=== PATIENT | male | born 1960 | race Caucasian/White ===

== ENCOUNTER 2022-02-19 21:00 | Emergency (ER) | payer OTHER, SELFPAY ==
[2022-02-19 21:18] VITALS: BP 171/89; PULSE 90; RESP 18; TEMP 37; O2SAT 100; BMI 24.6
--- NOTE | 2022-02-19 21:25 | DI.RAD.S_ITS ---
PROCEDURE: XR HAND LT MIN 3V INDICATIONS: Cut-off wheel injury, concern for FB TECHNIQUE: 3 views of the hand acquired. COMPARISON: None. FINDINGS: Bones: No fractures or dislocations. Carpal bones are normally aligned. No suspicious bony lesions. Soft tissues: There are soft tissue lacerations along the radial aspect of the hand and wrist. Multiple associated clustered punctate densities are demonstrated along the course of the laceration likely representing foreign bodies. IMPRESSION: 1. No fracture or dislocation. 2. Soft tissue lacerations with associated punctate clustered densities likely representing foreign bodies within the radial sided soft tissues. Dictated by: Paxton Morris M.D. on 02/20/2022 at 0:17 Approved by: Paxton Morris M.D. on 02/20/2022 at 0:18
--- NOTE | 2022-02-19 22:04 | PC.NURSE ---
Addendum entered by Joan Hodges R.N. 02/19/22 22:19: Soaking hand in warm water betadine. Original Note: During assessment of the wound, removed foreign body that appears to be part of cutting disk patient was using.
--- NOTE | 2022-02-19 22:45 | PC.NURSE ---
at bedside to suture laceration
--- NOTE | 2022-02-19 23:07 | ED_ITS ---
HPI - Wound/Laceration General Chief Complaint: Wound/Laceration Stated Complaint: Left hand lac/inj Time Seen by Provider: 02/19/22 22:22 Source: patient Mode of arrival: Ambulatory History of Present Illness HPI narrative: Patient is a healthy 61-year-old male who presents with left hand laceration. He was working on his car when he cut his thumb with a saw. He has no decreased range of motion goes along the thenar eminence his rest. No wrist numbness or tingling. His tetanus is not up-to-date. He is not on any anticoagulation. He is right-handed Related Data Previous Rx's Medication Instructions Recorded cephalexin 500 mg capsule 500 mg PO TID #21 caps 02/19/22 hydrocodone 5 mg-acetaminophen 325 1 tab PO Q6H PRN pain #10 tabs 02/19/22 mg tablet Allergies Allergy/AdvReac Type Severity Reaction Status Date / Time No Known Drug Allergies Allergy Verified 02/19/22 21:18 Review of Systems Review of Systems Narrative: GENERAL: Denies chills,fever HEENT: Denies throat pain RESPIRATORY: Denies dyspnea, cough, wheezing CARDIOVASCULAR: Denies chest pain, palpitations GASTROINTESTINAL: Denies nausea, vomiting MUSCULOSKELETAL: Denies extremity pain, injury SKIN: See HPI NEUROLOGIC: Denies weakness, dizziness, headache, numbness 8 point review of systems is negative except for those stated above and HPI Patient History Social History Smoking Status: Never smoker Smoking Status: Never smoker Substance Use Type: does not use Exam Initial Vital Signs Initial Vital Signs: Vital Signs Temperature 98.6 F 02/19/22 21:18 Pulse Rate 90 02/19/22 21:18 Respiratory Rate 18 02/19/22 21:18 Blood Pressure 171/89 H 02/19/22 21:18 Pulse Oximetry 100 02/19/22 21:18 Oxygen Delivery Method 02/19/22 21:18 GENERAL: Well-appearing, well-nourished and in no acute distress. CARDIOVASCULAR: peripheral pulses in tact, cap refill <2 sec RESPIRATORY: No respiratory distress, speaks in full sentences without difficulty EXTREMITIES: Normal range of motion, no clubbing or edema. Neurovascularly intact Left thumb full flexion extension cap refill less than 2 seconds strong distal radial pulse. NEUROLOGICAL: Cranial nerves II through XII grossly intact. Normal gait and speech. SKIN: Left thumb laceration 9 cm along the thenar eminence up into the wrist. Skin Hand Left Back: 1. 9 cm no tendon laceration, starting on palmar side, thenar eminence Procedures Laceration Repair Laceration 1: Site: hand (thumb) Side (If applicable): left Size (cm): 9 Description: linear Depth: simple, single layer Local Anesthetic: bupivacaine 0.5% Amount of anesthesia used (mL): 10 Pre-repair: wound explored, irrigated extensively, deep structures intact, extensive debridement and cleansed with chlorhexadine Skin layer closed with: nylon Skin layer suture size: 4-0 Number of sutures: 11 Technique: simple, interrupted Subcutaneous layer closed with: vicryl Subcutaneous layer suture size: 4-0 Number of sutures: 4 Technique: simple, interrupted Course Orders Ordered: ED Orders 02/19/22 21:25 XR hand LT min 3V Stat Discontinued Medications Hydrocodone Bitart/Acetaminophen (Hydrocodone/Acet 5/325 Prepack) [facility] Stop: 02/19/22 23:14 Last Admin: 02/19/22 23:21 Dose: 1 bottle Documented By: CHER Cefazolin Sodium (Cephalexin 250 Mg Prepack) 1 bottle [facility] Stop: 02/19/22 23:14 Last Admin: 02/19/22 23:20 Dose: 1 bottle Documented By: CHER Diphtheria/Tetanus/Acell Pertussis (Tet,Diph,Pertuss(Acell),Vac/Pf 0.5 Ml Syringe) 0.5 ml IM .ONCE ONE Stop: 02/19/22 21:26 Last Admin: 02/19/22 23:10 Dose: 0.5 ml Documented By: CHER Vital Signs Vital signs: Vital Signs - 8 hr 02/19/22 21:18 02/19/22 23:26 Temperature 98.6 F Pulse Rate 90 80 Respiratory Rate 18 18 Blood Pressure 171/89 H 164/80 H Pulse Oximetry 100 99 Oxygen Delivery Method Room Air Room Air MDM - Wound/Laceration Imaging Data Extremity x-ray #1: My Impression: Foreign body seen no fracture MDM Narrative Medical decision making narrative: Patient has significant laceration of his left hand neurovascularly he is intact. Requires 2 layer suturing he tolerated it well. X-ray does show foreign body nursing actually remove whatever foreign body was seen and was extensively is cleaned debrided. Discharge Plan Departure Patient Disposition: Home Clinical Impression: Laceration Instructions: DI for Laceration Repair Activity Restrictions/Additional Instructions: *You have been diagnosed with left hand laceration *What to do: Have sutures removed in about 7 days either by walk-in clinic PCP or return to emergency department. May keep clean and dry with soap and water. Apply antibiotic ointment 1-2 times daily. Keep bandage on well clean and active may remove bandage at night. No soaking in water. *Continue to take medications as directed Keflex 500 mg 3 times a day for 7 days Ibuprofen 600 mg every 6 hours if needed for ulih-lf-idenuoud Lyndon 1 tablet every 6 hours if needed for severe pain *Follow up with your primary care provider in 2-3 days or call [phone] *Return to ER if you should have increasing pain redness fever drain or any new, worsening or concerning symptoms CONTROLLED SUBSTANCE DISCHARGE (Narcotoic/benzodiazepine/Flexeril/Phenergan) 1. You have been prescribed narcotic medications, it does have acetaminophen/Tylenol/paracetamol in it, DO NOT TAKE MORE THAN 4,00mg in 24 hours of Tylenol. TRAMADOL DOES NOT CONTAIN TYLENOL 2. Please understand that we cannot provide further refills of narcotics, benzodiazepines or controlled substances through the ED and her pain management will need to be through your provider. 3. While on these medications you cannot drive or operate heavy machinery. 4. You cannot sign legal documents or perform any duties such as this. 5. As long as you're taking opiate pain medications he should also be taking a stool softener such as Colace, Dulcolax, MiraLAX or prune juice, to help avoid constipation. Prescriptions: New hydrocodone-acetaminophen 5-325 mg tablet 1 tab PO Q6H PRN (Reason: pain) Qty: 10 0RF cephalexin 500 mg capsule 500 mg PO TID Qty: 21 0RF Visit Report Forms: Patient Portal/API
[2022-02-19] MEDS: TET,DIPH,PERTUSS(ACELL),VAC/PF 0.5 ML SYRINGE IM (23:10)
[2022-02-19] MEDS: cephALEXin 250 MG PREPACK 1 BOTTLE MISC (23:20)
[2022-02-19] MEDS: HYDROCODONE/ACET 5/325 PREPACK 1 BOTTLE MISC (23:21)
[2022-02-19 23:26] VITALS: BP 164/80; PULSE 80; RESP 18; O2SAT 99
== END 2022-02-19 23:29 | disposition home or self-care (01) ==
PROVIDERS: Emergency Provider Emergency Medicine
DX: S61.412A Laceration without foreign body of left hand, initial encounter (principal); W27.0XXA Contact with workbench tool, initial encounter; Z23 Encounter for immunization
CPT/HCPCS: 12004; 73130; 90471; 99283; 90715